=== PATIENT | female | born 1995 | race Caucasian/White ===

== ENCOUNTER 2023-05-30 02:00 | Emergency (ER) | payer BC, SELFPAY ==
[2023-05-30 02:05] VITALS: BP 109/75; PULSE 94; RESP 16; TEMP 36.4; O2SAT 97; BMI 40.4
--- NOTE | 2023-05-30 02:22 | ED.SKABFB ---
HPI - Skin/Abscess/Foreign Bdy General Date Seen: 05/30/23 Chief complaint: Unspecified Complaint, Adult Stated complaint: Chemical Burn- Time Seen by Provider: 05/30/23 02:05 Source: patient Mode of arrival: ambulatory Limitations: no limitations History of Present Illness HPI narrative: Patient is a 28 year female comfortable micro was presented emergency department for rash. She says around 19:30 she was having some issues with skin shave things so she put on a skin chafing cream and a fragrance for a. 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 They noticed blisters and she was concerned she had a chemical reaction causing allen she came to the emergency department to be evaluated. Denies symptoms like this before but does admit to having chafing issues in the past Related Data Previous Rx's Medication Instructions Recorded dimethicone 5 % topical cream 1 applic topical QID PRN skin 05/30/23 irritation #118 mL ketoconazole 2 % topical cream 1 applic topical DAILY #15 grams 05/30/23 Allergies Allergy/AdvReac Type Severity Reaction Status Date / Time No Known Drug Allergies Allergy Verified 05/30/23 02:05 Review of Systems Narrative: Negative unless stated in HPI PFSH PFSH Social History Smoking Status: Never smoker Do you use any of these nicotine containing products: None Non-prescribed substance use: denies use Exam Narrative: Exam Narrative: Const: Well-nourished, Well-developed, in mild distress Eyes: PERRL, no conjunctival injection, and symmetrical lids HENT: Atraumatic external nose and ears. Moist mucous membranes. MSK:Extremities w/o deformity, Normal Active ROM Skin: Erythematous area in the groin with small pustules. Neuro: Normal Muscle tone, No focal neurological deficits. Psych: Awake, Alert, & Oriented x3. Appropriate mood and affect. Const: Vital Signs, click to edit/add: Vital Signs - 24 hr 05/30/23 02:05 Temperature 97.5 F L Pulse Rate [Pulse Oximeter] 94 Respiratory Rate 16 Blood Pressure [Ri ght Upper Arm] 109/75 Pulse Oximetry 97 Oxygen Delivery Me thod Room Air Course Vital Signs Vital signs: Initial Vital Signs Temperature 97.5 F L 05/30/23 02:05 Temperature Source Temporal Artery Scan 05/30/23 02:05 Pulse Rate 94 05/30/23 02:05 Respiratory Rate 16 05/30/23 02:05 Blood Pressure 109/75 05/30/23 02:05 Blood Pressure Mean 86 05/30/23 02:05 Pulse Oximetry 97 05/30/23 02:05 Oxygen Delivery Method Room Air 05/30/23 02:05 Vital Signs Temperature 97.5 F L 05/30/23 02:05 Pulse Rate 94 05/30/23 02:05 Respiratory Rate 16 05/30/23 02:05 Blood Pressure 109/75 05/30/23 02:05 Pulse Oximetry 97 05/30/23 02:05 Oxygen Delivery Method Room Air 05/30/23 02:05 Temperature 97.5 F L 05/30/23 02:05 Pulse Rate 94 05/30/23 02:05 Respiratory Rate 16 05/30/23 02:05 Blood Pressure 109/75 05/30/23 02:05 Pulse Oximetry 97 05/30/23 02:05 Oxygen Delivery Method Room Air 05/30/23 02:05 MDM - Skin/Abscess/Foreign Bdy MDM Narrative Medical decision making narrative: Patient is a 28-year-old female presenting for rash in her groin. Exam appears to be chief in from her legs rubbing together. She currently is toe Shawn jelly on which she says helps with the symptoms when she is walking. Does not appear to be any open blisters. Appears more likely to be secondary to friction rash versus a chemical burn. We will discharge her home with antifungal cream just in case as this can commonly have fungal infection. Give instructions for using barrier creams. She is agreeable to this plan. Discharge Plan Discharge Clinical Impression: Intertrigo Patient Disposition: Home, Self-Care Condition: Stable Instructions: Dermatitis (ED) Additional Instructions: Your rashes from the or legs rubbing together. Zinc oxide, petrolatum, or dimethicone topicals can be applied after cleaning the intertriginous area with mild soap and water and drying with a political science chair on a cold setting. Also prescribe you prophylactic anti fungal cream Prescriptions: New ketoconazole 2 % cream 1 applic topical DAILY Qty: 15 0RF dimethicone 5 % cream 1 applic topical QID PRN (Reason: skin irritation) Qty: 118 0RF Stand Alone Forms: [employer] Info Instructions
== END 2023-05-30 02:59 | disposition home or self-care (01) ==
LOC: ED 02:41
PROVIDERS: Emergency Provider Student in an Organized Health Care Education/Training Program
DX: L30.4 Erythema intertrigo (principal)
CPT/HCPCS: 99282; 99283

== ENCOUNTER 2023-08-08 17:05 | Emergency (ER) | payer BC, SELFPAY ==
[2023-08-08] VITALS (8 sets, daily range): BP systolic 129; BP diastolic 85; PULSE 99–112; RESP 16; TEMP 36.2; O2SAT 95–100; BMI 40.4
--- NOTE | 2023-08-08 17:21 | CRLHL7_ITS ---
For Patients: As a result of the Century Cures Act, medical imaging exams and procedure reports are released immediately into your electronic medical record. You may view this report before your referring provider. If you have questions, please contact your health care provider. Indication: Chest pain Comparison: None available. Technique: Single AP view chest Findings: There is mild increased interstitial change. Calcified granulomas are seen in the right upper lobe. There is no focal consolidation, effusion, or pneumothorax. The cardiomediastinal silhouette is within normal limits. The bony thorax is grossly intact. Impression: Mildly increased interstitial markings without dense consolidation. Dictated by Thad Bro MD @ 08/08/2023 6:23:15 PM (Electronically Signed)
--- NOTE | 2023-08-08 17:22 | ED_ITS ---
HPI - General Adult General Chief complaint: Chest Pain Stated complaint: chest pain Time Seen by Provider: 08/08/23 17:06 History of Present Illness HPI narrative: 28-year-old white female nonsmoker who has elevated BMI presents with few 2nd left anterior parasternal chest discomfort this seemed to go away quite quickly than a felt a little odd in that area now has resolved. She has had no history of coronary disease no history of reflux, she has no recent illness, no cough cold or flu type illnesses although she was sick with influenza about a month ago. She seemed to recovered fully from that. No leg swelling or edema. Patient reports no chronic health problems other than bronchospasm. This occurs intermittently. She has not had any that issue now. No symptoms of COVID or other viral type illness. Patient does report she has a history of significant anxiety and is quite anxious right now. The patient reports to the nursing staff that she has had little pinprick type discomfort along her sternum last couple of days, but she really declined that to me. Related Data Previous Rx's Medication Instructions Recorded albuterol sulfate 90 mcg/actuation 2 puff inhalation Q4-6H PRN 07/06/23 aerosol inhaler shortness of breath or wheezing #1 packet ondansetron 4 mg disintegrating 4 mg PO Q6-8H PRN nausea and 07/06/23 tablet vomiting #10 tabs Allergies Allergy/AdvReac Type Severity Reaction Status Date / Time house dust mite Allergy Unknown Verified 08/08/23 17:09 Review of Systems Status of ROS: Reports: 6 or more systems reviewed and unremarkable except as noted in History and below Narrative: No bleeding or clotting history PFSH PFSH Medical History Acute asthma exacerbation ?J45.901 - Unspecified asthma with (acute) exacerbation (ICD-10) Social History Smoking Status: Never smoker Do you use any of these nicotine containing products: None Non-prescribed substance use: denies use Exam Narrative: Exam Narrative: Objective: Patient's vital signs show slightly elevated pulse of 112 O2 sat 100% on room air afebrile. Alert orient x3 noncyanotic, no difficulty breathing Patient reports she is asymptomatic HEENT is unremarkable neck supple nodes chest is clear no rales or wheezing heart rhythm regular heart murmur no anterior chest wall discomfort Abdomen benign Extremities are no edema neurologic nonfocal Const: Vital Signs, click to edit/add: Vital Signs - 24 hr 08/08/23 17:09 08/08/23 17:39 08/08/23 17:40 Temperature 97.1 F L Pulse Rate 109 H Pulse Rate [Pulse Oximeter] 112 H Respiratory Rate 16 Blood Pressure [Ri ght Upper Arm] 129/85 Pulse Oximetry 100 98 98 Oxygen Delivery Me thod Room Air 08/08/23 17:45 08/08/23 17:50 08/08/23 18:00 Temperature Pulse Rate 99 Pulse Rate [Pulse Oximeter] Respiratory Rate Blood Pressure [Ri ght Upper Arm] Pulse Oximetry 96 96 95 Oxygen Delivery Me thod 08/08/23 18:02 08/08/23 18:10 Temperature Pulse Rate Pulse Rate [Pulse Oximeter] Respiratory Rate Blood Pressure [Ri ght Upper Arm] Pulse Oximetry 96 96 Oxygen Delivery Me thod Course Vital Signs Vital signs: Initial Vital Signs Respiratory Effort Normal, Spontaneous, Non-Labored 08/08/23 17:08 Respiratory Depth Normal 08/08/23 17:08 Respiratory Pattern Normal 08/08/23 17:08 Vital Signs Temperature 97.1 F L 08/08/23 17:09 Pulse Rate 112 H 08/08/23 17:09 Respiratory Rate 16 08/08/23 17:09 Blood Pressure 129/85 08/08/23 17:09 Pulse Oximetry 100 08/08/23 17:09 Oxygen Delivery Method Room Air 08/08/23 17:09 Temperature 97.1 F L 08/08/23 17:09 Pulse Rate 99 08/08/23 17:45 Respiratory Rate 16 08/08/23 17:09 Blood Pressure 129/85 08/08/23 17:09 Pulse Oximetry 96 08/08/23 18:10 Oxygen Delivery Method Room Air 08/08/23 17:09 Medical Decision Making [facility] Narrative Medical decision making narrative: [age] year white female with transient discomfort left parasternal area that is was a few seconds in duration then resolved she has no further symptomology now. She does have history of anxiety. For completeness will check a troponin her EKG looks reassuring, I think it would be reasonable get an x-ray as well. She denies . Will check her lab studies. Disposition pending findings. Given the transient nature of this I do not think she needs a D-dimer other blood clot type test her O2 sats 100% she is afebrile and she has had no immobility and has had no leg swelling edema or clotting. Is and her symptoms have resolved in her chest after just seconds. Addendum 5:53 p.m.: The patient has a chest x-ray by my read looks unremarkable, her EKG shows sinus rhythm by my read she has been just slightly tachycardic. Her other laboratory studies thus far show negative troponin normal white count normal hemoglobin, ER profile is pending. I think we can all ow the patient to go home and I will call her back if there is any abnormalities in her ER profile I do not think that significant at this time she is in a sinus rhythm, within normal x-ray and some of this may be just simply inflammatory chest wall changes would recommend some Advil as needed and recheck with regular doctor next few days. Findings amp and lab studies today reassuring. Lab Data Labs: Lab Results 08/08/23 Range/Units 17:29 WBC 6.59 (4.50-11.00) K/uL RBC 4.30 (4.00-5.20) m/uL Hgb 12.1 (12.0-16.0) gm/dL Hct 38.4 (33.0-51.0) % MCV 89 (80-100) fL MCH 28 (26-34) pg MCHC 32 (32-36) gm/dL RDW Coeff of Luis Eduardo 14.7 (11.5-15.5) % Plt Count 418 (140-440) K/uL Neut % (Auto) 50.9 (42.0-72.0) % Lymph % (Auto) 39.2 (20-44) % Sevier % (Auto) 7.3 (0.0-11.0) % Eos % (Auto) 1.8 (0.0-7.0) % Baso % (Auto) 0.5 (0.0-3.0) % Neut # (Auto) 3.36 (1.7-7.0) K/uL Lymph # (Auto) 2.58 (0.90-2.90) K/uL Sevier # (Auto) 0.50 (0.00-0.90) K/UL Eos # (Auto) 0.12 (0.00-0.50) K/uL Baso # (Auto) 0.03 (0.00-0.30) K/uL Abs Immat Gran (auto) 0.02 (0.00-0.30) K/uL Imm/Tot Granulo (auto) 0.3 % Sodium 140 (135-149) mmol/L Potassium 4.2 (3.6-5.1) mmol/L Chloride 105 (96-114) mmol/L Carbon Dioxide 28 (20-32) mmol/L Anion Gap 7 (7-15) mEq/L BUN 7 (5-24) mg/dL Creatinine 0.6 (0.5-1.5) mg/dL Estimated Creat Clear 131.85 Estimated GFR 126 ml/min Glucose 116 H (60-115) mg/dL Calcium 9.1 (8.4-10.6) mg/dL C-Reactive Protein 1.1 H (0.5-1.0) mg/dL POC Troponin I 0.00 L (0.01-0.04) ng/ml Discharge Plan Discharge Clinical Impression: Acute chest wall pain Patient Disposition: Home w/ Parent or Adult Condition: Stable Instructions: Chest Pain (DC) Additional Instructions: Recommend light activity for a couple of days no heavy lifting, would recommend Advil 2 tablets with each meal 3 times a day for the next 4 5 days. Recheck with regular doctor if problems or concerns. Activity Level: Light activity Discharge Diet: Regular Prescriptions: No Action albuterol sulfate 90 mcg/actuation HFA aerosol inhaler 2 puff inhalation Q4-6H PRN (Reason: shortness of breath or wheezing) Qty: 1 0RF ondansetron 4 mg tablet,disintegrating 4 mg PO Q6-8H PRN (Reason: nausea and vomiting) Qty: 10 0RF Follow Up/Referrals: Provider,Not a Local [Primary Care Provider] - Stand Alone Forms: [employer] Info Instructions
[2023-08-08 17:43] LABS: Basophils Absolute Auto 0.03 K/uL (0.00-0.30); Basophils Percent Auto 0.5 % (0.0-3.0); Eosinophils Absolute Auto 0.12 K/uL (0.00-0.50); Eosinophils Percent Auto 1.8 % (0.0-7.0); Hematocrit 38.4 % (33.0-51.0); Hemoglobin* 12.1 gm/dL (12.0-16.0); Immature Granulocytes Abs Auto 0.02 K/uL (0.00-0.30); Immature Granulocytes Pct Auto 0.3 %; Lymphocytes Absolute Auto 2.58 K/uL (0.90-2.90); Lymphocytes Percent Auto 39.2 % (20-44); Mean Corpuscular HGB Conc 32 gm/dL (32-36); Mean Corpuscular Hemoglobin 28 pg (26-34); Mean Corpuscular Volume 89 fL (80-100); Monocytes Percent Auto 7.3 % (0.0-11.0); Neutrophils Absolute Auto 3.36 K/uL (1.7-7.0); Neutrophils Percent Auto 50.9 % (42.0-72.0); Platelet Count* 418 K/uL (140-440); RDW Coefficient of Variation % 14.7 % (11.5-15.5); White Blood Count* 6.59 K/uL (4.50-11.00)
[2023-08-08 17:51] LABS: Slide Review Reflex No
[2023-08-08 17:54] LABS: Chloride* 105 mmol/L (96-114); Potassium* 4.2 mmol/L (3.6-5.1); Sodium* 140 mmol/L (135-149)
[2023-08-08 17:57] LABS: Creatinine* 0.6 mg/dL (0.5-1.5); Est. Creatinine Clearance* 131.85; Estimated Glomerular Filt Rate 126 ml/min
[2023-08-08 17:58] LABS: Anion Gap 7 mEq/L (7-15); Blood Urea Nitrogen* 7 mg/dL (5-24); Calcium* 9.1 mg/dL (8.4-10.6); Carbon Dioxide* 28 mmol/L (20-32); Glucose* 116 mg/dL (60-115)
[2023-08-08 18:00] LABS: C Reactive Protein* 1.1 mg/dL (0.5-1.0)
== END 2023-08-08 18:27 | disposition home or self-care (01) ==
PROVIDERS: Emergency Provider Family Medicine
DX: R07.89 Other chest pain (principal)
CPT/HCPCS: 36415; 71045; 80048; 84484; 85025; 86140; 93005; 99284

== ENCOUNTER 2024-05-02 23:26 | Emergency (ER) | payer BC, SELFPAY ==
[2024-05-02 23:32] VITALS: BP 121/86; PULSE 68; RESP 20; TEMP 36.7; O2SAT 98; BMI 46.0
[2024-05-02] MEDS: GI COCKTAIL (VISC LIDO/ANTACID) 30 ML PO (23:54)
--- NOTE | 2024-05-02 23:54 | ED_ITS ---
HPI - General Adult General Chief complaint: Heartburn/Gastritis Stated complaint: severe acid reflux Time Seen by Provider: 05/02/24 23:44 History of Present Illness HPI narrative: This 29-year-old female comes in because of heartburn symptoms. She states that she does take omeprazole 20 mg daily. She also tried Pepto-Bismol. She states that she did eat some foods that were more offensive and that she does have a history of reflux symptoms on occasion. She arrives here with normal vital signs and otherwise has no other complaints. Related Data Home Medications ?Medication ?Instructions ?Recorded ?Confirmed aripiprazole 10 mg tablet 10 mg PO DAILY 10/29/23 05/02/24 bupropion HCl 150 mg 24 hr tablet, 150 mg PO DAILY 05/02/24 05/02/24 extended release cariprazine 3 mg capsule (Vraylar) 3 mg PO DAILY 05/02/24 05/02/24 doxepin 25 mg capsule 25 mg PO DAILY 05/02/24 05/02/24 hydroxyzine HCl 25 mg tablet 25 mg PO QID 05/02/24 05/02/24 lamotrigine 25 mg tablet 25 mg PO BID 05/02/24 05/02/24 lorazepam 0.5 mg tablet 0.5 mg PO Q6H PRN anxiety 05/02/24 05/02/24 prazosin 2 mg capsule 2 mg PO BID 05/02/24 05/02/24 Allergies Allergy/AdvReac Type Severity Reaction Status Date / Time house dust mite Allergy Unknown Verified 05/02/24 23:37 Review of Systems Status of ROS: Reports: 10 or more systems reviewed and unremarkable except as noted in History and below Narrative: Constitutional: No fevers, no weight gain or loss. Eyes: No discharge. No vision changes. HENT: No congestion, no sore throat, no ear pain. Cardiovascular: No chest pain, no palpitations. Respiratory: No shortness of breath, no wheezes, no cough. Gastrointestinal: No abdominal pain, no vomiting, no diarrhea. Genitourinary: No dysuria, no hematuria. Musculoskeletal: Normal range of motion. Skin: No rashes, no pruritis. Neurological: No dizziness, weakness, sensory change, speech change. Endo/Heme/Allergies: No bruising or bleeding. No polydipsia. Pysch: no suicidality, no anxiety, no insomnia. All other systems reviewed and are negative. [facility] Medical History Acute asthma exacerbation ?J45.901 - Unspecified asthma with (acute) exacerbation (ICD-10) Social History Smoking Status: Never smoker Do you use any of these nicotine containing products: None Non-prescribed substance use: denies use Exam Narrative: Exam Narrative: Constitutional: Well-developed, well-nourished, no acute distress. HEENT: Normocephalic, atraumatic. Neck: Normal range of motion. Nontender. Supple. Heart: Intact distal pulses. Lungs: No chest discomfort. No wheezes, rhonchi, or rales. Abdomen: Nontender. Back: Normal range of motion. Extremities: Normal range of motion. No injury. Skin: Intact. No rash. Warm. No erythema or pallor. Neurologic: No altered sensation. No weakness. Alert and oriented. Psychiatric: No suicidality. No anxiety or depression. No insomnia. Nursing notes and vitals signs are reviewed. Const: Vital Signs, click to edit/add: Vital Signs - 24 hr 05/02/24 23:32 Temperature 98.0 F Pulse Rate [Right Pulse Oximeter] 68 Respiratory Rate 20 Blood Pressure [Le ft Upper Arm] 121/86 Pulse Oximetry 98 Oxygen Delivery Me thod Room Air Course Vital Signs Vital signs: Initial Vital Signs Temperature 98.0 F 05/02/24 23:32 Temperature Source Temporal Artery Scan 05/02/24 23:32 Pulse Rate 68 05/02/24 23:32 Respiratory Rate 20 05/02/24 23:32 Blood Pressure 121/86 05/02/24 23:32 Blood Pressure Mean 97 05/02/24 23:32 Blood Pressure Position Sitting 05/02/24 23:32 Pulse Oximetry 98 05/02/24 23:32 Oxygen Delivery Method Room Air 05/02/24 23:32 Vital Signs Temperature 98.0 F 05/02/24 23:32 Pulse Rate 68 05/02/24 23:32 Respiratory Rate 20 05/02/24 23:32 Blood Pressure 121/86 05/02/24 23:32 Pulse Oximetry 98 05/02/24 23:32 Oxygen Delivery Method Room Air 05/02/24 23:32 Temperature 98.0 F 05/02/24 23:32 Pulse Rate 68 05/02/24 23:32 Respiratory Rate 20 05/02/24 23:32 Blood Pressure 121/86 05/02/24 23:32 Pulse Oximetry 98 05/02/24 23:32 Oxygen Delivery Method Room Air 05/02/24 23:32 Medical Decision Making MDM Narrative Medical decision making narrative: This patient comes in because of unsuccessful treatment of heartburn symptoms. She has had symptoms exactly like this in the past but was unable to remedy the symptoms with her treatments at home. She was given a GI cocktail here. I did advise her to increase her omeprazole dosing from 20 mg to 40 mg and even up to 80 mg daily if needed. I also described other treatments and dietary issues related to reflux. Discharge Plan Discharge Clinical Impression: Esophagitis, reflux Patient Disposition: Home, Self-Care Condition: Stable Additional Instructions: Okay to increase omeprazole to 40 mg daily or even up to 80 mg daily if needed. Follow up with MD or return if worsening. Prescriptions: No Action aripiprazole 10 mg tablet 10 mg PO DAILY doxepin 25 mg capsule 25 mg PO DAILY lamotrigine 25 mg tablet 25 mg PO BID lorazepam 0.5 mg tablet 0.5 mg PO Q6H PRN (Reason: anxiety) hydroxyzine HCl 25 mg tablet 25 mg PO QID prazosin 2 mg capsule 2 mg PO BID bupropion HCl 150 mg tablet extended release 24 hr 150 mg PO DAILY Vraylar 3 mg capsule 3 mg PO DAILY Follow Up/Referrals: Provider,Not a Local [Primary Care Provider] - Stand Alone Forms: [employer] Info Instructions
[2024-05-02 23:58] VITALS: BP 124/74; PULSE 70; RESP 20; TEMP 36.7; O2SAT 98
[2024-05-03 00:01] VITALS: BP 124/74; PULSE 70; RESP 20; TEMP 36.7
== END 2024-05-03 00:05 | disposition home or self-care (01) ==
PROVIDERS: Emergency Provider Emergency Medicine Emergency Medical Services
DX: K21.00 Gastro-esophageal reflux disease with esophagitis, without bleeding (principal)
CPT/HCPCS: 99283; 99284; A9270

== ENCOUNTER 2024-05-27 15:49 | Emergency (ER) | payer BC, SELFPAY ==
[2024-05-27 15:51] VITALS: BP 112/78; PULSE 102; RESP 20; TEMP 37.4; O2SAT 97; BMI 45.7
--- NOTE | 2024-05-27 16:07 | CRLHL7_ITS ---
For Patients: As a result of the Cures Act, medical imaging exams and procedure reports are released immediately into your electronic medical record. You may view this report before your referring provider. If you have questions, please contact your health care provider. Indication: Left sided chest pain Comparison: None available. Technique: PA and lateral views of the chest Findings: Hyperinflation and chronic interstitial changes with calcified granuloma in the right upper lobe. There is no focal consolidation, effusion, or pneumothorax. The cardiomediastinal silhouette is within normal limits. The bony thorax is grossly intact. Impression: No acute cardiopulmonary abnormality. Dictated by Thad Bro MD @ 05/27/2024 5:00:04 PM (Electronically Signed)
--- NOTE | 2024-05-27 16:08 | ED.CHESTPAIN ---
HPI - Chest Pain General Date Seen: 05/27/24 Chief Complaint: Chest Pain Stated Complaint: Chest pain Time Seen by Provider: 05/27/24 15:52 Source: patient Mode of arrival: ambulatory Limitations: no limitations History of Present Illness HPI narrative: Patient is a 29-year-old female presenting to the emergency department for chest pain. She states over the past week she have about 1 episode a day which she will get sharp left-sided chest pain that would last about 10 seconds to 1 minutes in length. Symptoms would then go away. She states when the symptoms were current she would have pain with any deep breaths. Denies having any pain like this prior to this past week. No chest injuries that she is aware appears currently pain-free. Symptoms appear to occur randomly. Last occurrence was about 30 minutes prior to arrival. She does have to grandparents who had heart attacks before their age 65. No family history of sudden cardiac at a young age. No history of cancer, recent surgeries. She is not currently on any hormonal treatments. Denies hemoptysis or lower extremity edema. No history of blood clots. Denies fevers, chills, lightheadedness, dizziness, weakness, numbness abdominal pain, diarrhea, constipation. Related Data Home Medications ?Medication ?Instructions ?Recorded ?Confirmed aripiprazole 10 mg tablet 10 mg PO DAILY 10/29/23 05/02/24 bupropion HCl 150 mg 24 hr tablet, 150 mg PO DAILY 05/02/24 05/02/24 extended release cariprazine 3 mg capsule (Vraylar) 3 mg PO DAILY 05/02/24 05/02/24 doxepin 25 mg capsule 25 mg PO DAILY 05/02/24 05/02/24 hydroxyzine HCl 25 mg tablet 25 mg PO QID 05/02/24 05/02/24 lamotrigine 25 mg tablet 25 mg PO BID 05/02/24 05/02/24 lorazepam 0.5 mg tablet 0.5 mg PO Q6H PRN anxiety 05/02/24 05/02/24 prazosin 2 mg capsule 2 mg PO BID 05/02/24 05/02/24 Allergies Allergy/AdvReac Type Severity Reaction Status Date / Time house dust mite Allergy Unknown Verified 05/27/24 18:14 Review of Systems Status of ROS Reports: 10 or more systems reviewed and unremarkable except as noted in History and below [facility] Medical History Acute asthma exacerbation ?J45.901 - Unspecified asthma with (acute) exacerbation (ICD-10) Social History Smoking Status: Never smoker Do you use any of these nicotine containing products: Vaping Products Second hand tobacco smoke exposure: No How often do you have a drink containing alcohol: never AUDIT-C Alcohol total score: 0 Non-prescribed substance use: denies use Exam Narrative Exam Narrative: Const: Well-nourished, Well-developed, in no distress Eyes: PERRL, no conjunctival injection, and symmetrical lids HENT: Atraumatic external nose and ears. Moist mucous membranes. Neck: Symmetric, trachea midline, No thyromegaly. CVS: RRR, No murmurs or gallops. Peripheral pulses 2+ and equal in all extremities RESP: Unlabored respiratory effort. Clear to auscultation bilaterally. GI: Nontender/Nondistended, No rebound or guarding. MSK:Extremities w/o deformity, Normal Active ROM Skin: Warm, Dry. No rashes or lesions. Neuro: Normal Muscle tone, No focal neurological deficits. Psych: Awake, Alert, & Oriented x3. Appropriate mood and affect. Const Vital Signs, click to edit/add: Vital Signs - 24 hr 05/27/24 15:51 05/27/24 17:25 05/27/24 19:14 Temperature 99.4 F 98 F 98.2 F Pulse Rate [Pulse Oximeter] 102 H 90 95 Respiratory Rate 20 18 18 Blood Pressure [Right Upper Arm] 112/78 110/72 113/73 Pulse Oximetry 97 98 96 Oxygen Delivery Method Room Air Room Air Room Air Course Vital Signs Vital signs: Initial Vital Signs Temperature 99.4 F 05/27/24 15:51 Temperature Source Temporal Artery Scan 05/27/24 15:51 Pulse Rate 102 H 05/27/24 15:51 Respiratory Rate 20 05/27/24 15:51 Blood Pressure 112/78 05/27/24 15:51 Blood Pressure Mean 89 05/27/24 15:51 Blood Pressure Position Sitting 05/27/24 15:51 Pulse Oximetry 97 05/27/24 15:51 Oxygen Delivery Method Room Air 05/27/24 15:51 Vital Signs Temperature 99.4 F 05/27/24 15:51 Pulse Rate 102 H 05/27/24 15:51 Respiratory Rate 20 05/27/24 15:51 Blood Pressure 112/78 05/27/24 15:51 Pulse Oximetry 97 05/27/24 15:51 Oxygen Delivery Method Room Air 05/27/24 15:51 Temperature 98.2 F 05/27/24 19:14 Pulse Rate 95 05/27/24 19:14 Respiratory Rate 18 05/27/24 19:14 Blood Pressure 113/73 05/27/24 19:14 Pulse Oximetry 96 05/27/24 19:14 Oxygen Delivery Method Room Air 05/27/24 19:14 MDM - Chest Pain MDM Narrative Medical decision making narrative: Patient is a 29-year-old female presenting for chest pain. The differential diagnosis of chest pain is broad and includes common etiologies such as precordial catch syndrome, musculoskeletal strain, GERD, pneumonia, etc. More serious etiologies considered include PE, coronary artery disease, pneumothorax, aortic dissection, aortic aneurysm. Patient has episodes of tachycardia so cannot be perked out. D-dimer will be ordered. Will do a EKG and troponin to look for signs of ACS. Will do chest x-ray to look for signs pneumothorax or pneumonia. There are dissection aortic aneurysm she very unlikely as the patient is otherwise stable and currently symptom free. Lab work returned showing no concerning skin findings other than a mildly elevated D-dimer and 0.51. EKG shows no concerning findings. Chest x-ray evaluated by myself the radiologist shows no concerning findings Will do a CTA of the chest to rule out PE. Will also do a repeat troponin. CTA shows no acute concerning abnormalities as evaluated by myself and the radiologist. Repeat troponin was performed and still within normal limits. She has not had any further symptoms since arriving in the emergency department. At this time I believe she is safe for discharge. She is agreeable to this plan Lab Data Labs: Lab Results 05/27/24 05/27/24 05/27/24 Range/Units 16:08 16:23 16:43 WBC 8.56 (4.50-11.00) K/uL RBC 4.46 (4.00-5.20) m/uL Hgb 11.3 L (12.0-16.0) gm/dL Hct 36.2 (33.0-51.0) % MCV 81 (80-100) fL MCH 25 L (26-34) pg MCHC 31 L (32-36) gm/dL RDW Coeff of Luis Eduardo 15.1 (11.5-15.5) % Plt Count 416 (140-440) K/uL Neut % (Auto) 53.0 (42.0-72.0) % Lymph % (Auto) 39.3 (20-44) % [place] % (Auto) 5.6 (0.0-11.0) % Eos % (Auto) 1.8 (0.0-7.0) % Baso % (Auto) 0.2 (0.0-3.0) % Neut # (Auto) 4.54 (1.7-7.0) K/uL Lymph # (Auto) 3.36 H (0.90-2.90) K/uL [place] # (Auto) 0.50 (0.00-0.90) K/UL Eos # (Auto) 0.15 (0.00-0.50) K/uL Baso # (Auto) 0.02 (0.00-0.30) K/uL Abs Immat Gran (auto) 0.01 (0.00-0.30) K/uL Imm/Tot Granulo (auto) 0.1 % D-Dimer Quant (PE/DVT) 0.51 H (0.00-0.50) ug/ml Sodium 138 (135-149) mmol/L Potassium 3.6 (3.6-5.1) mmol/L Chloride 103 (96-114) mmol/L Carbon Dioxide 24 (20-32) mmol/L Anion Gap 11 (7-15) mEq/L BUN 10 (5-24) mg/dL Creatinine 0.8 (0.5-1.5) mg/dL Estimated Creat Clear 98.01 Estimated GFR 103 ml/min Glucose 104 (60-115) mg/dL Calcium 8.9 (8.4-10.6) mg/dL Lab Acknowledgement Test Added POC Troponin I 0.00 L (0.01-0.04) ng/ml 05/27/24 Range/Units 18:47 WBC (4.50-11.00) K/uL RBC (4.00-5.20) m/uL Hgb (12.0-16.0) gm/dL Hct (33.0-51.0) % MCV (80-100) fL MCH (26-34) pg MCHC (32-36) gm/dL RDW Coeff of Luis Eduardo (11.5-15.5) % Plt Count (140-440) K/uL Neut % (Auto) (42.0-72.0) % Lymph % (Auto) (20-44) % [place] % (Auto) (0.0-11.0) % Eos % (Auto) (0.0-7.0) % Baso % (Auto) (0.0-3.0) % Neut # (Auto) (1.7-7.0) K/uL Lymph # (Auto) (0.90-2.90) K/uL [place] # (Auto) (0.00-0.90) K/UL Eos # (Auto) (0.00-0.50) K/uL Baso # (Auto) (0.00-0.30) K/uL Abs Immat Gran (auto) (0.00-0.30) K/uL Imm/Tot Granulo (auto) % D-Dimer Quant (PE/DVT) (0.00-0.50) ug/ml Sodium (135-149) mmol/L Potassium (3.6-5.1) mmol/L Chloride (96-114) mmol/L Carbon Dioxide (20-32) mmol/L Anion Gap (7-15) mEq/L BUN (5-24) mg/dL Creatinine (0.5-1.5) mg/dL Estimated Creat Clear Estimated GFR ml/min Glucose (60-115) mg/dL Calcium (8.4-10.6) mg/dL Lab Acknowledgement POC Troponin I 0.00 L (0.01-0.04) ng/ml Imaging Data Chest x-ray: Attestation: I have reviewed the pertinent imaging results. Radiologist's impression: No acute cardiopulmonary abnormality. Dictated by Thad Bro MD @ 05/27/2024 5:00:04 PM CTA chest: Attestation: I have reviewed the pertinent imaging results. Radiologist's impression: No pulmonary embolism. No focal consolidation. Please note that all CT scans at this facility use dose modulation, iterative reconstruction, and/or weight-based dosing when appropriate to reduce radiation dose to as low as reasonably achievable. Dictated by Tevin Guzman MD @ 05/27/2024 6:34:25 PM ECG Data Attestation: I personally reviewed and interpreted this ECG as follows: Prior ECG tracings: available for review Interpretation: Normal sinus rhythm the rate 97 beats per minute, normal intervals, normal axis, no ST or T-wave abnormalities. 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 Follow-up the primary care provider if symptoms persist. Return to emergency department for new or worsening symptoms. Prescriptions: No Action aripiprazole 10 mg tablet 10 mg PO DAILY doxepin 25 mg capsule 25 mg PO DAILY lamotrigine 25 mg tablet 25 mg PO BID lorazepam 0.5 mg tablet 0.5 mg PO Q6H PRN (Reason: anxiety) hydroxyzine HCl 25 mg tablet 25 mg PO QID prazosin 2 mg capsule 2 mg PO BID bupropion HCl 150 mg tablet extended release 24 hr 150 mg PO DAILY Vraylar 3 mg capsule 3 mg PO DAILY Follow Up/Referrals: Provider,Not a Local [Primary Care Provider] - Stand Alone Forms: [employer] Info Instructions
[2024-05-27 16:30] LABS: Basophils Absolute Auto 0.02 K/uL (0.00-0.30); Basophils Percent Auto 0.2 % (0.0-3.0); Eosinophils Absolute Auto 0.15 K/uL (0.00-0.50); Eosinophils Percent Auto 1.8 % (0.0-7.0); Hematocrit 36.2 % (33.0-51.0); Hemoglobin* 11.3 gm/dL (12.0-16.0); Immature Granulocytes Abs Auto 0.01 K/uL (0.00-0.30); Immature Granulocytes Pct Auto 0.1 %; Lymphocytes Absolute Auto 3.36 K/uL (0.90-2.90); Lymphocytes Percent Auto 39.3 % (20-44); Mean Corpuscular HGB Conc 31 gm/dL (32-36); Mean Corpuscular Hemoglobin 25 pg (26-34); Mean Corpuscular Volume 81 fL (80-100); Monocytes Percent Auto 5.6 % (0.0-11.0); Neutrophils Absolute Auto 4.54 K/uL (1.7-7.0); Platelet Count* 416 K/uL (140-440); RDW Coefficient of Variation % 15.1 % (11.5-15.5); Red Blood Count 4.46 m/uL (4.00-5.20); White Blood Count* 8.56 K/uL (4.50-11.00)
[2024-05-27 16:33] LABS: Slide Review Reflex No
[2024-05-27 16:57] LABS: Chloride* 103 mmol/L (96-114); Potassium* 3.6 mmol/L (3.6-5.1); Sodium* 138 mmol/L (135-149)
[2024-05-27 16:59] LABS: Creatinine* 0.8 mg/dL (0.5-1.5); Est. Creatinine Clearance* 98.01; Estimated Glomerular Filt Rate 103 ml/min
[2024-05-27 17:00] LABS: Anion Gap 11 mEq/L (7-15); Blood Urea Nitrogen* 10 mg/dL (5-24); Calcium* 8.9 mg/dL (8.4-10.6); Carbon Dioxide* 24 mmol/L (20-32); Glucose* 104 mg/dL (60-115)
[2024-05-27 17:04] LABS: D Dimer Quantitative* 0.51 ug/ml (0.00-0.50)
[2024-05-27 17:25] VITALS: BP 110/72; PULSE 90; RESP 18; TEMP 36.6; O2SAT 98
--- NOTE | 2024-05-27 18:03 | CRLHL7_ITS ---
For Patients: As a result of the Century Cures Act, medical imaging exams and procedure reports are released immediately into your electronic medical record. You may view this report before your referring provider. If you have questions, please contact your health care provider. INDICATION: Chest pain. TECHNIQUE: CT chest PE was acquired with 100 cc Omnipaque 350 IV contrast. COMPARISON: None. FINDINGS: Heart and vasculature: Contrast opacification of the pulmonary arterial tree is adequate. No sign of pulmonary embolism. Heart size is normal. Thoracic aorta and pulmonary artery are normal in caliber. Lungs and pleura: No suspicious nodules or infiltrates. Scattered granulomas. No pleural effusions, pleural thickening, or pneumothorax. Lymph nodes/mediastinum: No mediastinal, hilar, or axillary adenopathy. Chest wall: No masses. Upper abdomen: No acute or significant findings. Bones: Unremarkable for age. IMPRESSION: No pulmonary embolism. No focal consolidation. Please note that all CT scans at this facility use dose modulation, iterative reconstruction, and/or weight-based dosing when appropriate to reduce radiation dose to as low as reasonably achievable. Dictated by Tevin Guzman MD @ 05/27/2024 6:34:25 PM (Electronically Signed)
[2024-05-27 19:14] VITALS: BP 113/73; PULSE 95; RESP 18; TEMP 36.8; O2SAT 96
== END 2024-05-27 19:50 | disposition home or self-care (01) ==
PROVIDERS: Emergency Provider Student in an Organized Health Care Education/Training Program
DX: R07.9 Chest pain, unspecified (principal)
CPT/HCPCS: 36415; 71046; 71275; 80048; 84484; 85025; 85379; 93005; 99283; 99284; 99285; Q9967

== ENCOUNTER 2025-06-19 20:26 | Emergency (ER) | payer BC, SELFPAY ==
--- OUTSIDE RECORDS SUMMARY | 2025-06-19 20:28 | XMS_ITS | Clinical Summary ---
Author Organization [facility] Address [address] [place] [address] Care Team Providers Care Experimental [employer]ic [employer] Name Role Phone Codie Dumont [facility] Unavailable Liliana Magana MD Primary Care Provider Allergies No known active allergies Medications No known medications Active Problems Problem Noted Date Diagnosed Date Schizophrenia, schizo-affective 03/07/2024 Gastroesophageal reflux disease 03/07/2024 Posttraumatic stress disorder 10/15/2023 Mood disorder 10/15/2023 Severe recurrent major depre ssion without psychotic features 10/10/2021 Generalized anxiety disorder 03/31/2021 Seasonal allergies 03/15/2021 Dust allergy 03/15/2021 Allergy to cats 03/15/2021 Resolved Problems Problem Noted Date Diagnosed Date Resolved Date Moderate alcohol use disorde r, in sustained remission 10/15/2023 04/21/2025 Infertility, female, primary 02/20/2023 04/21/2025 Encounters Date Type Department Care Team Description 05/20/2025 Patient Outreach [facility] Management - Care Management Navigation/[facility] [address] [place] [id number] Dagmar Brown HRSN-Community Resource Navigation 05/06/2025 Nurse Triage [facility] [address] [place] [address] Liliana Magana MD Vaginal Bleeding 04/21/2025 11:20 AM CDT Office Visit [facility] [address] [place] [address] Liliana Magana MD Physical (No concerns today ) 04/21/2025 Travel from Last 3 Months Immunizations Immunization Administration Dates Next Due DTaP 04/05/2001,02/23/1997,1996 ,1996 Dtap Unspecified Formulation 05/19/1998 HPV 9 (Gardasil 9) 03/23/2021,,12/24/2019,05/28/2017, 01/06/2017 Hepatitis B, Unspecified 02/23/1997,1996,1 08/31/1995 Hib Conjugate, Unspecified 05/19/1998,02/23/1997 ,1996,1996 Inactivated Polio Vaccine 04/05/2001 Influenza, IIV3 (Age >=3 years) 06/10/2020,08/20 MMR 04/05/2001,06/11/1997 Polio Virus, Unspecified 02/23/1997,1996,1 08/31/1995 Tdap 10/22/2015,03/26/2009 Family History Medical History Relation Name Comments Anxiety disorder Brother Asthma Father Coronary artery disease Maternal Aunt Depression Maternal Aunt Thyroid cancer Maternal Aunt Heart attack Maternal Grandfather Skin cancer Maternal Grandfather Depression Maternal Grandmother Diabetes Maternal Grandmother Stroke Maternal Grandmother Alcoholism Mother Bipolar disorder Mother Diabetes Mother Suicidality Mother Dementia Paternal Grandfather Heart attack Paternal Grandfather Mental illness Sister Relation Name Status Comments Brother Alive Father Alive Maternal Aunt Alive Maternal Grandfather Alive Maternal Grandmother Alive Mother Paternal Grandfather Paternal Grandmother Alive Sister Alive Social History Tobacco Use Types Packs/Day Years Used Date Smoking Tobacco: Former Cigarettes 0.5 11.4 2 12/2024 Smokeless Tobacco: Never Tobacco Cessation:Counseling Given: Yes Alcohol Use Standard Drinks/Week Comments Not Currently 0 (1 standard drink = 0.6 oz pur e alcohol) PHQ-2 Answer Date Recorded PHQ-2 TOTAL SCORE 2 04/21/2025 Social Connections Answer Date Recorded Do you often feel lonely or isolated from those around you? 4 04/21/2025 Alcohol Use Answer Date Recorded How often do you have a drink containing alcohol ? 0 04/21/2025 Average Number of Drinks Not on file 025 Frequency of Binge Drinking Not on file 03/25 Financial Resource Strain Answer Date R ecorded Difficulty of Paying Living Expenses 2 04/21/2025 Difficulty of Paying Living Expenses 1 04/21/2025 Food Insecurity Answer Date Recorded Do you worry your food will run out before you are able to buy more? 2 04/21/2025 Transportation Needs Answer Date Record ed Does lack of transportation keep you from medica l appointments? 1 04/21/2025 Does lack of transportation keep you from work, meetings or getting things that you need? 1 04/21/2025 Housing Stability Answer Date Recorded What is your housing situation today? 1 04/21/2025 Interpersonal Safety Answer Date Record ed Are you being hit, kicked, p ushed or yelled at (see row info)? No 10/09/2023 Interpersonal Safety Abuse 12 - 18 Not on file 10/09/2023 Interpersonal Safety Ambulatory Vulnerability No t on file 10/09/2023 Utilities Answer Date Recorded Do you have trouble paying f or utilities (for example, heat, electricity, water, phone)? 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 Gender Identity Not on file Sexual Orientation Not on file Occupation Industry Job Start Date Job End Date Unemployed Not on file Not on file Not on file Obstetrics History Para Term AB IAB SAB Ectopic Multiple Livin g Live Births 0 0 0 0 0 0 0 0 0 0 0 Last Filed Vital Signs Vital Sign Reading Time Taken Comments Blood Pressure 110/74 04/21/2025 11:28 AM CDT Pulse 88 04/21/2025 11:28 AM CDT Temperature 36.6 C (97.8 F) 02/22/2024 8:37 AM CDT Respiratory Rate 16 02/22/2024 8:37 AM CDT Oxygen Saturation 97% 04/21/2025 11: 28 AM CDT Inhaled Oxygen Concentration - - Weight 134.4 kg (296 lb 3.2 oz) 025 11:28 AM CDT Height 169 cm (5' 6.54) 04/21/2025 11: 28 AM CDT Body Mass Index 47.04 04/21/2025 11:28 AM CDT Plan of Treatment Health Maintenance Due Date Last Done Comments Pneumococcal series for age 6-49 (1 of 2 - PCV) 2015 Influenza Vaccine (#1) 2025 06/10/2020, 2018 Tetanus booster 10/21/2025 10/22/2015, 03/26/2009 BMI (ht and wt on same day) for age 18+ 04/21/2026 04/21/2025 Depression screening for age 12+ 04/21/2026 04/21/2025, 03/11/2024, 10/16/2023, Additional history exists Pap test for age 21-65 03/07/2027 (Verified in Care Everywhere or Patient Record), 03/23/2021 (Verified in Care Everywhere or Patient Record) RSV vaccine for adults or (1 - 1-dose 75+ series) 2071 Hepatitis B series for 19+ Completed 02/23, 1996, 1996 HPV series for age 9-45 Completed 03/23/20, 06/10/2020, 12/24/2019, Additional history exists HIV for age 15-65 Addressed 01/20/2025 (Ve rified in Care Everywhere or Patient Record) Overridden with the intention of not completing the topic Hepatitis C screening for age 18-79 Addressed 01/20/2025 (Verified in Care Everywhere or Patient Record) Overridden with the intention of not completing the topic Procedures Procedure Name Priority Date/Time Associated Diagnosis Comments HEMOGLOBIN Routine 04/21/2025 11:49 AM CDT Screening, iron deficiency anemia LIPID PANEL W REFLEX MEASURED LDL Routine 04/21/2025 11:49 AM CDT Screening, lipid HEMOGLOBIN A1C Routine 04/21/2025 11:49 AM CDT Screening for diabetes mellitus from Last 3 Months Results * (ABNORMAL) HEMOGLOBIN A1C (04/21/2025 11:49 AM CDT) HEMOGLOBIN A1C 5.8(H) <5.7 % 04/22/2025 4:56 AM CDT [facility] [place] Comment: For someone without known diabetes, a hemoglobin A1c value between 5.7% and 6.4% is consistent with prediabetes and should be confirmed with a follow-up test. For someone with known diabetes, a value <7% indicates that their diabetes is well controlled. A1c targets should be individualized based on duration of diabetes, age, comorbid conditions, and other considerations. This assay result is consistent with an increased risk of diabetes. Currently, no consensus exists regarding use of hemoglobin A1c for diagnosis of diabetes for children. Blood BLOOD SPECIMEN / Unknown [facility] / Unknown 04/21/2025 11:49 AM CDT 04/21/2025 11:49 AM CDT us Liliana Magana MD CHEMISTRY Final R esult [facility] [place] [address] [address], * (ABNORMAL) LIPID PANEL W REFLEX MEASURED LDL (04/21/2025 11:49 AM CDT) [facility] CHOLESTEROL, TOTAL 152 <200 mg/dL 04/22/2025 3:34 AM [facility] TRIGLYCERIDES 131 <150 mg/dL 04/22/2025 3:34 AM CDT [facility] HDL CHOLESTEROL 40(L) > OR = 50 mg/dL 04/22/2025 3:34 AM [facility] NON HDL CHOLESTEROL 112 <130 mg/dL (calc) 04/22/2025 3:34 AM [facility] Comment: For patients with diabetes plus 1 major ASCVD risk factor, treating to a non-HDL-C goal of <100 mg/dL (LDL-C of <70 mg/dL) is considered a therapeutic option. CHOL/HDLC RATIO 3.8 <5.0 (calc) 04/22/2025 3:34 AM [facility] LDL-CHOLESTEROL 89 mg/dL (calc) 04/22/2025 3:34 AM [facility] Comment: Reference range: <100 Desirable range <100 mg/dL for primary prevention; <70 mg/dL for patients with CHD or diabetic patients with > or = 2 CHD risk factors. LDL-C is now calculated using the Belinda calculation, which is a validated novel method providing better accuracy than the Friedewald equation in the estimation of LDL-C. Kunal SS et al. MALLORY. 2013;310(19): 5430-9355 (http://education.[employer]/faq/UDL411) Blood BLOOD SPECIMEN / Unknown [facility] / Unknown 04/21/2025 11:49 AM CDT 04/21/2025 11:49 AM CDT Liliana Magana MD CHEMISTRY Final R esult Performing Organization Address [facility] Co de Phone Number [facility] [place] [address] [address], [place] [phone] * HEMOGLOBIN (04/21/2025 11:49 AM CDT) HEMOGLOBIN 12.4 11.7 - 15.5 g/dL 04/22/2025 3:51 AM CDT [facility] MCV 89.1 80.0 - 100.0 fL 04/22/2025 3:51 AM CDT [facility] Blood BLOOD SPECIMEN / Unknown [facility] / Unknown 04/21/2025 11:49 AM CDT 04/21/2025 11:49 AM CDT Liliana Magana MD HEMATOLOGY Final R esult Performing Organization Address [facility] Co de Phone Number [facility] [place] [address] [address], [place] [phone] from Last 3 Months Insurance [facility] NON-[place]-ITS Care Teams Experimental [employer] Spacecraft Relationship Specialty [place] [id number] [place] [address] PCP - General Family Practice 04/22/25 Codie Dumont, ANIKA [address] [place] [address] Psychiatry Clinical Nurse Specialist 03/05/24
--- OUTSIDE RECORDS SUMMARY | 2025-06-19 20:28 | XMS_ITS | Clinical Summary ---
[facility] Address [address] [address] Care Team Providers Care Operations Scheduler Name Role Phone Viki Bhatt APRN, CNP Primary Care Provide r Source Comments You are receiving this document as you are listed as the primary care provider,follow-up provider, or the patient has been referred to you for consultation.This is in compliance with the Medicare andMedicaid EHR Incentive Program,which states Providers who transition their patient to another setting of careor provider of care or refers their patient to another provider of care shouldprovide summary care record for each transition of care or referral. [facility] No known active allergies Medications hydrOXYzine HCl (ATARAX) 25 MG tablet Take 1 Tablet (25 mg) by mouth every 6 hours as needed. 4 Active metFORMIN (GLUCOPHAGE) 1000 MG tabletIndication s:Insulin resistance,Irreg ular menstruation, unspecified Take 1 Tablet (1,000 mg) by mouth two times a day with meals. 180 Tablet 3 5 11/11/19 26 Active omeprazole (PRILOSEC) 20 MG capsuleIndicatio ns:Gastroesophag eal reflux disease, unspecified whether esophagitis present Take 2 Capsules (40 mg) by mouth daily. 90 Capsule 3 5 Active Multiple Vitamin (MULTI-VITAMIN) tablet take 1 tablet by mouth daily with any meal 5 Active melatonin 5 MG tablet Take 1 Tablet (5 mg) by mouth daily at bedtime. Active cholecalciferol (VITAMIND3) 50 MCG (2000 UT) tablet Take 1 Tablet (2,000 Units) by mouth daily. Active ALBUterol sulfate HFA 108 (90 Base) MCG/ACT inhaler Inhale 2 Puffs every 4 hours as needed. 5 Active Active Problems Problem Noted Date Diagnosed Date Irregular menstruation, unspecified 08/11/2024 Abnormal uterine and vaginal bleeding, unspecifi ed 08/11/2024 Schizophrenia, schizo-affective 03/07/2024 Gastroesophageal reflux disease 03/07/2024 Mood disorder 11/27/2023 Posttraumatic stress disorder 11/27/2023 Infertility, female, primary 02/20/2023 Severe recurrent major depre ssion without psychotic features 10/10/2021 Generalized anxiety disorder 03/31/2021 Dust allergy 03/15/2021 Seasonal allergies 03/15/2021 Allergy to cats 03/15/2021 Resolved Problems Problem Noted Date Diagnosed Date Resolved Date Adjustment disorder with mix ed anxiety and depressed mood 03/31/2021 10/10/2021 Chest pain 03/14/2021 03/15/2021 Anxiety 03/14/2021 03/31/2021 Immunizations Immunization Administration Dates Next Due 9vHPV (Gardasil 9) 03/23/2021, 0,12/24/2019,2016,01/06/2017 DTaP 04/05/2001, 7,1996,1995 HepB, Unspecified Formulation 02/23/1997, 997,1996 Hib, Unspecified Formulation 05/19/1998, 02/23/1997,1996,1995 IPV (Polio) 04/05/2001 Influenza IIV4 (Quadrivalent ) 0.5mL (83331) 06/10/2020,08/20/2018 MMR 04/05/2001,06/11/1997 Polio, Unspecified Formulation 02/23/1997,1996,1996 Tdap 10/22/2015,03/26/2009 Social History Tobacco Use Types Packs/Day Years Used Date Smoking Tobacco: Former Cigarettes 0 Q uit: 03/15/2021 Smokeless Tobacco: Never Tobacco Cessation:Counseling Given: Not Answered Comments:Used to occ smoke cigarettes Alcohol Use Standard Drinks/Week Comments Not Currently 0 (1 standard drink = 0.6 oz pur e alcohol) PHQ-2 Answer Date Recorded PHQ-2 Score 0 08/01/2024 Hunger Vital Sign Answer Date Recorded Within the past 12 months, y ou worried that your food would run out before you got the money to buy more. Sometimes true Within the past 12 months, t he food you bought just didn't last and you didn't have money to get more. Never true PRAPARE - Transportation Answer Date Re corded In the past 12 months, has l ack of transportation kept you from medical appointments or from getting medications? No 02/20 In the past 12 months, has l ack of transportation kept you from meetings, work, or from getting things needed for daily living? No 03/07/2024 Housing Stability Vital Sign Answer Eladio e Recorded In the last 12 months, was t here a time when you were not able to pay the mortgage or rent on time? No 03/07/2024 Number of Times Moved in the Last Year Not on fi le 03/07/2024 At any time in the past 12 m [facility], were you homeless or living in a senior living (including now)? No 03/07/2024 Comments No Sex and Gender Information Value Date Recorded Sex Assigned at Not on file Legal Sex Female 7:30 AM CDT Gender Identity Not on file Sexual Orientation Not on file Occupation Industry Job Start Date Job End Date Not on file Not on file Not on file Not on file Last Filed Vital Signs Vital Sign Reading Time Taken Comments Blood Pressure 109/58 02/03/2025 3:29 PM CDT Pulse 92 02/03/2025 3:29 PM CDT Temperature 36.8 C (98.2 F) 11/21/2024 8:17 AM CDT Respiratory Rate 16 11/21/2024 8:17 AM CDT Oxygen Saturation 98% 11/21/2024 8:17 AM CDT Inhaled Oxygen Concentration - - Weight 140.6 kg (310 lb) 02/03/2025 3:29 PM CDT Height 168.9 cm (5' 6.5) 03/07/2024 11:07 AM CD T Body Mass Index 49.29 03/07/2024 11:07 AM CDT Plan of Treatment Health Maintenance Due Date Last Done Comments Hep C Screening (Preventive Services) 1996 COVID-19 Vaccine ( - season) 2025 Influenza Vaccine (#1) 2025 06/10/2020, 2018 DTaP/Tdap/Td Vaccine (7 - Tdap) 10/21/2025 10/22/2015, 03/26/2009, 04/05/2001, Additional history exists Adult Preventive Visit 03/07/2026 03/07/2024 Cervical Cancer Screening 03/07/20272023, 03/23/2021, 02/03/2020 (Completed) Zoster/Shingles Vaccine (1 of 2) 2046 HepB Vaccine Completed 02/23/1997, 09/21, 1996 Hib Vaccine Completed 05/19/1998, 10/1996, 1996, Additional history exists HPV Vaccine Completed 03/23/2021, 05/23, 12/24/2019, Additional history exists Chlamydia Discontinued 04/23/2024, 03/23/2021 HIV Screening (Preventive Services) Completed 04/23/2024, 03/23/2021 HepA Vaccine Aged Out No longer eligi ble based on patient's age to complete this topic MCV4 Vaccine Aged Out No longer eligi ble based on patient's age to complete this topic Meningococcal B Vaccine Aged Out No l onger eligible based on patient's age to complete this topic Pneumococcal Vaccine Aged Out No long er eligible based on patient's age to complete this topic Procedures Procedure Name Priority Date/Time Associated Diagnosis Comments HIV 1/2 AG/AB 4TH GEN Routine 04/23/2024 4:35 PM CDT Routine screening for STI (sexually transmitted infection) CHLAMYDIA & GC, URINE (14 YEARS AND OLDER) Routine 04/23/2024 4:35 PM CDT Routine screening for STI (sexually transmitted infection) CYTOLOGY (PAP) Routine 03/07/2024 12:05 PM CDT Screening for malignant neoplasm of cervix from Last 3 Months or Most Recently Relevant to Health Maintenance Results * HIV 1/2 Ag/Ab 4th Generation (04/23/2024 4:35 PM CDT) Pathologist [facility] HIV 1/2 Antigen/Antib nancy (4th generation) Negative (Non Reactive) Negative (Non Reactive) 04/23/2024 9:16 PM CDT [facility] Comment:HIV-1 p24 Antigen an d HIV-1/HIV-2 Antibody not detected Blood Venipuncture / Unknown 04/23/2024 4:35 PM CDT 04/23/2024 4:35 PM CDT Karla Mauricio PA-C LAB_1 Final Resul t Performing Organization Address [facility] Co de Phone Number [facility] [address] * Chlamydia & GC, Urine (14 Years and Older) (04/23/2024 4:35 PM CDT) [facility] Chlamydia Trachomatis STD Not Detected Not Detected 04/24/2024 2:12 PM CDT [facility] N. gonorrhoeae STD Not Detected Not Detected 04/24/2024 2:12 PM CDT [facility] Urine STD Non-blood Collection / Unknown 04/23/2024 4:35 PM CDT 04/23/2024 4:35 PM CDT Narrative [facility] - 04/24/2024 2:12 PM CDT Test performed by Barrel Charrer Helper Mediated Amplification (TMA). Karla Mauricio PA-C LAB_1 Final Resul t Performing Organization Address [facility]/ZIP Co de Phone Number [facility] [address] * PAP Test (03/07/2024 12:05 PM CDT) [facility] Case Report Pap Case: [id number] Authorizing Provider: Viki Bhatt APRN, Collected: 03/07/2024 1205 SKILLED HELPER Ordering Location: [facility] Received: 03/07/2024 1229 First Screen: NaultJosuéoe E, CT (ASCP) Specimen: Pap Test, Routine, Cervix/Endocervix 04/14/2024 3:38 PM CDT [facility] Pap Specimen Adequacy Satisfactory for evaluation, endocervical/zhang sformation zone component absent. 04/14/2024 3:38 PM CDT [facility] Pap Interpretation (NILM) Negative for intraepithelial lesion or malignancy. 04/14/2024 3:38 PM CDT [facility] at 1538 CDT Pap Disclaimer The Pap test is a screening test to aid in the detection of cervical and vaginal cancers and their precursor lesions. It is not a diagnostic procedure and should not be used as the sole means of detecting malignancy. Both false-positive and false-negative results may occur. 04/14/2024 3:38 PM CDT [facility] Gross Description The specimen is received in SurePath fixative and properly labeled. 1 Pap-stained SurePath slide is prepared. 04/14/2024 3:38 PM CDT [facility] Embedded Images 3:38 PM CDT [facility] Other Specimen Type ENTIRE ENDOCERVIX / Unknown 03/07/2024 12:05 PM CDT 03/07/2024 12:29 PM CDT Comment:LMP: No LMP recorded . Viki Bhatt APRN, CNP LAB PATHOLOGY Final Result [facility] [address] [place] [address], [facility] from Last 3 Months or Most Recently Relevant to Health Maintenance Insurance BCBS OUT OF STATE BCBS OUT OF STATE BCBS OUT OF [facility] [place] [phone] Care Teams Operations Scheduler Relationship Specialty Start Date End Date Viki Bhatt, PEDIGREE TRACER, SKILLED HELPER [address] [place] [address] PCP - General Nurse Practitioner 03/16/24
--- OUTSIDE RECORDS SUMMARY | 2025-06-19 20:28 | XMS_ITS | Clinical Summary ---
Author Organization [facility] Address [address] [place] [address] Care Team Providers Care Matte Cutter Name Role Phone No Ref-Primary, Physician Primary Care Provider Allergies No known active allergies Medications VRAYLAR 1.5 MG capsule TAKE 1 CAPSULE (1.5 MG) BY MOUTH ONCE DAILY. 02/01/2024 Active buPROPion (WELLBUTRIN XL) 150 MG 24 hr tablet Take 150 mg by mouth. 02/06/2024 Active famotidine (PEPCID) 20 MG tablet Take 20 mg by mouth. 06/16/2024 Active doxepin (SINEQUAN) 25 MG capsule Take 25 mg by mouth. 02/06/2024 Active hydrOXYzine HCl (ATARAX) 25 MG tablet Take 25-50 mg by mouth. 02/22/2024 Active lamoTRIgine (LAMICTAL) 25 MG tablet Take 25 mg by mouth. 02/29/2024 Active omeprazole (PRILOSEC) [address] capsule Take 2 capsules by mouth daily. 02/01/2024 Active nicotine (NICODERM CQ) 14 MG/24HR 24 hr patchIndication s:Nicotine dependence with current use Place 1 patch over 24 hours onto the skin every 24 hours. 28 patch 07/23/2024 Active Social History Tobacco Use Types Packs/Day Years Used Date Smoking Tobacco: Never Assessed Comments No Sex and Gender Information Value Date Recorded Sex Assigned at Not on file Legal Sex Female 1:31 PM PARALEGAL SECRETARY Gender Identity Not on file Sexual Orientation Not on file Last Filed Vital Signs Vital Sign Reading Time Taken Comments Blood Pressure 106/64 07/23/2024 2:34 PM PARALEGAL SECRETARY Pulse 101 07/23/2024 2:34 PM PARALEGAL SECRETARY Temperature 37.1 C (98.7 F) 07/23/2024 2:34 PM PARALEGAL SECRETARY Respiratory Rate 16 07/23/2024 2:34 PM PARALEGAL SECRETARY Oxygen Saturation 99% 07/23/2024 2:34 PM PARALEGAL SECRETARY Inhaled Oxygen Concentration - - Weight 127.9 kg (282 lb) 07/23/2024 2:34 PM PARALEGAL SECRETARY Height - - Body Mass Index - - Plan of Treatment Health Maintenance Due Date Last Done Comments ADVANCE CARE PLANNING 1996 ANNUAL REVIEW OF HM ORDERS 1996 HEPATITIS C SCREENING 2014 PHQ-2 (once per calendar year) 2024 YEARLY PREVENTIVE VISIT 03/07/2025 03/07/20, 09/08/2020, 06/10/2020 COVID-19 VACCINE ( season) 2025 INFLUENZA VACCINE (#1) 2025 06/10/2020, 2018 DTAP/TDAP/TD VACCINE (8 - Td or Tdap) 10/21/2025 10/22/2015, 03/26/2009, 04/05/2001, Additional history exists PAP 03/07/2027 03/07/2024, 09/08/2020 ZOSTER VACCINE (1 of 2) 2046 HEPATITIS B VACCINE Completed 02/23/1997, 1996, 1996 HPV VACCINE Completed 03/23/2021, 05/23, 12/24/2019, Additional history exists HIV SCREENING Completed 04/23/2024 MENINGITIS VACCINE Aged Out No longer eligible based on patient's age to complete this topic PNEUMOCOCCAL VACCINE: PEDIATRICS (0 to 5 YEARS) AND AT-RISK PATIENTS (6 to 49 YEARS) Aged Out No longer eligible based on patient's age to complete this topic Insurance BCBS OUT OF STATE BS OUT OF STATE Care Teams Matte Cutter Relationship Specialty Start Date End Date No Ref-Primary, Physician PCP - General 07/23/24
--- OUTSIDE RECORDS SUMMARY | 2025-06-19 20:28 | XMS_ITS | Clinical Summary ---
Author Organization [facility] Address [address] [place] [address] Care Team Providers Care Rectifying Attendant Name Role Phone Marlyn Perdomo M.D. Primary Care Provider [phone] Source Comments Patient records contain information from all sites at [facility]. For routine questions regarding patient records, call [phone] during business hours, M-F 8:00 AM - 5:00 PM Central Time. Record requests for emergency care only can be directed to [phone] at any time.[facility] Allergies No known active allergies Medications cetirizine (ZyrTEC) 10 mg tablet Take 10 mg by mouth daily. Active fluticasone propionate (FLONASE) 50 mcg/actuation nasal spray SHAKE LQ AND U 2 SPRAYS IEN D 0 Active sertraline (ZOLOFT) 25 mg tabletIndication s:Anxiety Take 1 tablet (25 mg total) by mouth daily. 30 tablet 1 Active Additional Information Patient not taking.Reported on 01/20/2025 ferrous sulfate tablet take 1 tablet by mouth daily 100 tablet 5 Active Additional Information Patient not taking.Reported on 01/20/2025 multivitamin tablet take 1 tablet by mouth daily with any meal 100 tablet 5 Active nicotine (Nicoderm CQ) 21 mg/[address] 1 patch on the skin daily, remove nightly. 42 patch 12/27/2024 7:34 PM CDT 5 Active Additional Information Patient not taking.Reported on 01/20/2025 cholecalciferol (Vitamin D3) 50 mcg (2,000 Unit) tablet take 1 tablet by mouth daily 100 tablet 5 Active Additional Information Patient not taking.Reported on 01/20/2025 FLUoxetine (PROzac) 40 mg capsule Take 1 capsule (40 mg total) by mouth daily for 7 days, THEN 2 capsules (80 mg total) daily thereafter. 60 capsule 12/27/2024 7:34 PM CDT 5 Active Additional Information Patient not taking.Reported on 01/20/2025 ibuprofen 600 mg tablet Take 1 tablet (600 mg total) by mouth every 6 (six) hours as needed for pain. Take with food or milk. 20 tablet 12/27/2024 7:34 PM CDT Active loperamide (Imodium A-D) 2 mg capsule Take 1 capsule (2 mg total) by mouth 4 (four) times a day as needed for diarrhea. 20 capsule 12/27/2024 7:34 PM CDT 5 Active Additional Information Patient not taking.Reported on 01/20/2025 folic acid 1 mg tablet Take 1 tablet (1,000 mcg total) by mouth daily for 30 days. 30 tablet 12/27/2024 7:34 PM CDT Active gabapentin (Neurontin) 300 mg capsule Take 1 capsule (300 mg total) by mouth 3 (three) times a day for 5 days. 15 capsule 12/27/2024 7:34 PM CDT 5 Active Additional Information Patient not taking.Reported on 01/20/2025 hydrOXYzine (Atarax) 25 mg tablet Take 1-2 tablets (25-50 mg total) by mouth every 6 (six) hours as needed for anxiety. 240 tablet 12/27/2024 7:34 PM CDT Active albuterol (ProAir HFA) 90 mcg/actuation inhalerIndicatio ns:Asthma Mild Intermittent (HCC) Inhale 2 puffs every 4 (four) hours as needed for wheezing or shortness of breath. 8.5 g 5 Active omeprazole (PriLOSEC) [address] capsule Take 1 capsule (40 mg total) by mouth daily as needed for acid reflux. 30 capsule 5 Active melatonin 5 mg tablet Take 1 tablet (5 mg total) by mouth at bedtime. 90 tablet 1 5 07/19/20 25 Active metFORMIN (Glucophage) 500 mg tablet Take 1 tablet (500 mg total) by mouth 2 (two) times a day. 60 tablet 5 Active Active Problems Problem Noted Date Diagnosed Date Major Depressive Disorder, Recurrent, Unspecifie d 01/20/2025 Rhinitis Allergic 06/10/2020 Anxiety 06/10/2020 Asthma Mild Intermittent 06/10/2020 Immunizations Immunization Administration Dates Next Due 9vHPV 03/23/2021, 0,12/24/2019,2016,01/06/2017 DTaP (Infanrix, [employer]) 04/05/2001,10/1996,1996,1995 DTaP, Unspecified 05/19/1998 HepB, Unspecified 02/23/1997,1996,06/30/19 96 Hib, Unspecified 05/19/1998, 7,1996,1995 IPV 04/05/2001 MMR 04/05/2001,06/11/1997 Polio, Unspecified 02/23/1997,1996, 996 Tdap 10/22/2015,03/26/2009 influenza vaccine quad (FLUZONE/FLUARIX) (6 months and older)(PF) 06/10/2020,08/20/2018 Family History Medical History Relation Name Comments No Known Problems Brother No Known Problems Father Coronary artery disease Maternal Grandfather Diabetes type II Maternal Grandfather Diabetes type II Maternal Grandmother Kidney failure Maternal Grandmother Completed suicide Mother Thyroid cancer Mother's Sister alok olea Coronary artery disease Paternal Grandfather raffy nogueira No Known Problems Paternal Grandmother No Known Problems Sister Relation Name Status Comments Brother Alive Father Alive Maternal Grandfather Alive Maternal Grandmother Alive Mother Mother's Sister alok olea Alive Paternal Grandfather raffy calloway Alive Paternal Grandmother Alive Sister Alive Social History Tobacco Use Types Packs/Day Years Used Date Smoking Tobacco: Never Smokeless Tobacco: Never Tobacco Cessation:Counseling Given: Yes Alcohol Use Standard Drinks/Week Comments Not Currently 0 (1 standard drink = 0.6 oz pur e alcohol) [facility] Utilities Answer Date Recorded In the past 12 months has th e [employer], oil, or water [employer] threatened to shut off services in your home? No 06/13/2024 Humiliation, Afraid, Rape, and Kick questionnair e Answer Date Recorded Within the last year, have y ou been afraid of your partner or ex-partner? No 06/10/2020 Within the last year, have y ou been humiliated or emotionally abused in other ways by your partner or ex-partner? No Within the last year, have y ou been kicked, hit, slapped, or otherwise physically hurt by your partner or ex-partner? No 06/10/2020 Within the last year, have y ou been raped or forced to have any kind of sexual activity by your partner or ex-partner? No 06/10/2020 Hunger Vital Sign Answer Date Recorded Within [...] medical appointments or from getting medications? No 05/24 In the past 12 months, has l ack of transportation kept you from meetings, work, or from getting things needed for daily living? No 06/13/2024 Depression Answer Date Recor ded PHQ-9 Total Score (max 27) 0 06/13 Housing Stability Answer Date Recorded What is your living situation today? [facility] have [facility] live 06/13/2024 Education Answer Date Recorded What is the highest level of school you have completed or the highest degree you have received? Some college, no degree 06/10/2020 Comments No Sex and Gender Information Value Date Recorded Sex Assigned at Female 06/13/2024 3:12 PM [employer] Legal Sex Female 10:16 AM CDT Gender Identity Female 06/13/2024 3:12 PM [employer] Sexual Orientation Straight 06/13/2024 3: 12 PM [employer] Last Filed Vital Signs Vital Sign Reading Time Taken Comments Blood Pressure 121/78 01/20/2025 12:54 PM CDT Pulse 94 01/20/2025 12:54 PM CDT Temperature 36 C (96.8 F) 01/20/2025 12:54 PM CDT Respiratory Rate 16 07/22/2020 9:59 AM [employer] Oxygen Saturation 96% 01/20/2025 12:54 PM CDT Inhaled Oxygen Concentration - - Weight 144 kg (317 lb 10.9 oz) 01/20/2025 12:54 PM CDT Height 170.3 cm (5' 7.05) 09/08/2020 3:57 PM CS T Body Mass Index 49.69 09/08/2020 3:57 PM [employer] Plan of Treatment Health Maintenance Due Date Last Done Comments Pneumococcal vaccine (0-49 y ears) (1 of 2 - PCV) 2015 Asthma Action Plan 06/10/2020 Depression Monitoring (PHQ-9) 10/11/2024 06/13/2024 COVID-19 Vaccine (1 - 2024-2 6 season) 2025 Influenza Vaccine (#1) 2025 06/10/2020, 2018 DTaP,Tdap,and Td Vaccines (8 - Td or Tdap) 10/21/2025 10/22/2015, 03/26/2009, 04/05/2001, Additional history exists Asthma Control Test Questionnaire 01/20/2026 025 Asthma Management/Exacerbati on Questionnaire (AMQ/AEQ) 01/20/2026 01/20/2025 Cervical/Vaginal Cancer Screening 03/07/2027 024, 09/08/2020 Hepatitis B Vaccines Completed 02/23/1997, 1996, 1996 IPV Vaccines Completed 04/05/2001, 10/1996, 1996, Additional history exists Chlamydia and Gonorrhea Screening Discontinued 020 HPV Vaccines Completed 03/23/2021, 05/23, 12/24/2019, Additional history exists Depression Monitoring (PHQ-9 for quality tracking) Completed 01/20/2025, 01/20/2025 HIV Screening Completed 01/20/2025 Procedures Procedure Name Priority Date/Time Associated Diagnosis Comments HIV-1/-2 AG AND AB SCREEN, PLASMA Routine 01/20/2025 1:54 PM CDT Screening Test Laboratory THINPREP SCREEN HPV REFLEX Routine 09/08/2020 4:27 PM [employer] Pap Smear Examination CHLAMYDIA/GONORRHOE AE AMPLIFIED RNA Routine 06/10/2020 4:20 PM [employer] Screening For Venereal Disease from Last 3 Months or Most Recently Relevant to Health Maintenance Results * HIV-1/-2 Ag and Ab Screen, Plasma (01/20/2025 1:54 PM CDT) Pathologist [facility] HIV Ag/Ab Screen, P Negative Negative 01/20/2025 4:12 PM CDT LCX Comment: Negative result does not rule out HIV infection. If exposure to HIV infection occurred <14 days ago, contact the laboratory to request addition of HIV-1/HIV-2 RNA detection, Plasma (HIP12). HIV-1 p24 Ag Screen, P Negative Negative 01/20/2025 4:12 PM CDT LCX Comment: Negative result does not rule out HIV infection. If exposure to HIV infection occurred <14 days ago, contact the laboratory to request addition of HIV-1/HIV-2 RNA detection, Plasma (HIP12). HIV-1 Ab Screen, P Negative Negative 01/20/2025 4:12 PM CDT LCX Comment: Negative result does not rule out HIV infection. If exposure to HIV infection occurred <14 days ago, contact the laboratory to request addition of HIV-1/HIV-2 RNA detection, Plasma (HIP12). HIV-2 Ab Screen, P Negative Negative 01/20/2025 4:12 PM CDT LCX Comment: Negative result does not rule out HIV infection. If exposure to HIV infection occurred <14 days ago, contact the laboratory to request addition of HIV-1/HIV-2 RNA detection, Plasma (HIP12). Blood (Blood, Venous) 01/20/2025 1:54 PM CDT 01/20/2025 1:59 PM CDT us Tee Siddiqi D.O. LAB MICROBIOLOGY - BLOOD O RDERABLES Final Result [facility] [place] [address] [place] [address], [place] LCX [facility] [place] [address] [place] [address] * ThinPrep Screen HPV Reflex (09/08/2020 4:27 PM [employer]) 09/13/2020 11:54 AM [employer] ECLR Report electronically signed by JUDI Rodriguez(ASCP) I verify that I have examined all relevant slides/materials for the specimen(s) and rendered or confirmed the diagnosis. 09/13/2020 11:54 AM [employer] ECLR Gross Description Received specimen in a ThinPrep vial. 09/13/2020 11:54 AM [employer] ECLR Pap Test Source Cervical/Endocervi miguel 09/13/2020 11:54 AM [employer] ECLR Interpretation Cervical/Endocervi miguel (ThinPrep): Satisfactory for Evaluation Negative for Intraepithelial Lesion or Malignancy Shift in rahat suggestive of bacterial vaginosis 09/13/2020 11:54 AM [employer] ECLR Varies (Cervix/Endocerv ix) 09/08/2020 4:27 PM [employer] 09/09/2020 8:33 AM [employer] us Catrina Ring M.D. LAB PAP PATHDX ORDERABLES Fin al Result [facility] [address] [place] [id number], [facility] ECLR [facility] in [address] [address] * Chlamydia / Gonorrhoeae Amplified RNA (06/10/2020 4:20 PM [employer]) Source Swab, Cervix/Endo cervix 06/11/2020 12:26 PM [employer] ECLR Chlamydia trachomatis amplified RNA Negative Negative 06/11/2020 12:26 PM [employer] ECLR Comment: The test performance characteristics of cervix and endocervix samples using the Oviceversagic Multitest swab for GC/Chlamydia testing have NOT been determined by the [facility] laboratory. Per CDC guidelines published in 2014, the preferred specimen for GC/Chlamydia testing on females is the vaginal swab. The Oviceversagic Multitest swab is used for vaginal samples. Source Swab, Cervix/Endo cervix 06/11/2020 12:26 PM [employer] ECLR Neisseria gonorrhoeae amplified RNA Negative Negative 06/11/2020 12:26 PM [employer] ECLR Comment: The test performance characteristics of cervix and endocervix samples using the Hologic Multitest swab for GC/Chlamydia testing have NOT been determined by the [facility] laboratory. Per CDC guidelines published in 2014, the preferred specimen for GC/Chlamydia testing on females is the vaginal swab. The Oviceversagic Multitest swab is used for vaginal samples. Varies (Cervix/Endocerv ix) 06/10/2020 4:20 PM [employer] 06/10/2020 7:17 PM [employer] Edwige Roberts M.D. LAB MICROBIOLOGY - GENERAL BELEN IYER Final Result [facility] [address] [place] [id number], [facility] ECLR [place] [address] from Last 3 Months or Most Recently Relevant to Health Maintenance Insurance [facility] Care Teams Rectifying Attendant Relationship Specialty Start Date End Date Marlyn Perdomo M.D. [address] [place] [phone] PCP - General Family Medicine 01/29/25
--- NOTE | 2025-06-19 20:36 | CRLHL7_ITS ---
For Patients: As a result of the Century Cures Act, medical imaging exams and procedure reports are released immediately into your electronic medical record. You may view this report before your referring provider. If you have questions, please contact your health care provider. Indication: Fall, ankle swelling and pain Technique: Left ankle, 3 views. Comparison: None. Findings/Impression: There is an acute, mildly displaced, horizontally oriented fracture of the lateral malleolus distal to the tibiofibular syndesmosis. There is overlying soft tissue swelling. Dictated by Aneta Feldman MD @ 06/19/2025 8:58:08 PM (Electronically Signed)
[2025-06-19 20:37] VITALS: BP 109/80; PULSE 94; RESP 16; TEMP 37.2; O2SAT 96
--- NOTE | 2025-06-19 20:49 | ED.GENADULT ---
HPI - General Adult General Chief complaint: Extremity Pain/Injury, Lower Stated complaint: L ankle injury Time Seen by Provider: 06/19/25 20:45 Source: patient Mode of arrival: ambulatory Limitations: no limitations History of Present Illness HPI narrative: 30-year-old female coming in today complaining of left ankle pain. Patient was walking in the snow when she lost her footing and felt a crack of the left ankle. She is able to bear weight but causes significant discomfort laterally. Related Data Home Medications ?Medication ?Instructions ?Recorded ?Confirmed hydroxyzine HCl 25 mg tablet 25 mg PO QID 05/02/24 06/19/25 Allergies Allergy/AdvReac Type Severity Reaction Status Date / Time house dust mite Allergy Unknown Verified 07/30/24 14:28 Review of Systems Status of ROS: Reports: 6 or more systems reviewed and unremarkable except as noted in History and below [facility] Medical History Acute asthma exacerbation ?J45.901 - Unspecified asthma with (acute) exacerbation (ICD-10) Social History Smoking Status: Never smoker Do you use any of these nicotine containing products: Vaping Products Second hand tobacco smoke exposure: No How often do you have a drink containing alcohol: never AUDIT-C Alcohol total score: 0 Non-prescribed substance use: denies use Exam Narrative: Exam Narrative: Obese, well-developed patient in no acute distress. Alert and oriented. Answers questions appropriately. Mood and affect are appropriate. Thoughts are goal oriented and rational. No tangential or magical thinking noted. Patient speaks in full sentences without needing to catch her breath. HEENT: Normocephalic atraumatic. Pupils are equally round reactive to light. Extraocular muscles are intact. Conjunctivae are moist without any icterus noted. Moist mucous membranes. Extremities: Patient has significant lateral swelling of the left ankle with discomfort over the lateral malleolus. Normal DP PT pulses. Const: Vital Signs, click to edit/add: Vital Signs - 24 hr 06/19/25 20:37 Temperature 99.0 F Pulse Rate [Right Pulse Oximeter] 94 Respiratory Rate 16 Blood Pressure [Le ft Upper Arm] 109/80 Pulse Oximetry 96 Oxygen Delivery Me thod Room Air Course Course ED Course: X-ray, read by me, shows a fracture of the lateral malleolus, distal to the joint line. Patient placed in a cam boot. Vital Signs Vital signs: Initial Vital Signs Temperature 99.0 F 06/19/25 20:37 Temperature Source Temporal Artery Scan 06/19/25 20:37 Pulse Rate 94 06/19/25 20:37 Respiratory Rate 16 06/19/25 20:37 Blood Pressure 109/80 06/19/25 20:37 Blood Pressure Mean 89 06/19/25 20:37 Blood Pressure Position Sitting 06/19/25 20:37 Pulse Oximetry 96 06/19/25 20:37 Oxygen Delivery Method Room Air 06/19/25 20:37 Vital Signs Temperature 99.0 F 06/19/25 20:37 Pulse Rate 94 06/19/25 20:37 Respiratory Rate 16 06/19/25 20:37 Blood Pressure 109/80 06/19/25 20:37 Pulse Oximetry 96 06/19/25 20:37 Oxygen Delivery Method Room Air 06/19/25 20:37 Temperature 99.0 F 06/19/25 20:37 Pulse Rate 94 06/19/25 20:37 Respiratory Rate 16 06/19/25 20:37 Blood Pressure 109/80 06/19/25 20:37 Pulse Oximetry 96 06/19/25 20:37 Oxygen Delivery Method Room Air 06/19/25 20:37 Medical Decision Making MDM Narrative Medical decision making narrative: 30-year-old female, fracture of the lateral malleolus. Patient will follow-up with orthopedics next week. Imaging Data X-ray ankle: Attestation: I have reviewed the pertinent imaging results. Radiologist's impression: Technique: Left ankle, 3 views. Comparison: None. Findings/Impression: There is an acute, mildly displaced, horizontally oriented fracture of the lateral malleolus distal to the tibiofibular syndesmosis. There is overlying soft tissue swelling. Discharge Plan Discharge Clinical Impression: Fracture of lateral malleolus Patient Disposition: Home, Self-Care Condition: Stable Additional Instructions: Wear boot at all times. Follow-up with orthopedics next week. Elevate as much as possible over the next 24 hours. Ice it today and tomorrow-ice for 20 minutes at a time every 2-3 hours, do not apply ice directly to the skin. Prescriptions: No Action hydroxyzine HCl 25 mg tablet 25 mg PO QID Follow Up/Referrals: Provider,Not a Local [Primary Care Provider, Family Practice] Stand Alone Forms: [employer] Info Instructions
== END 2025-06-19 22:00 | disposition home or self-care (01) ==
LOC: ED 21:17
PROVIDERS: Emergency Provider Family Medicine
DX: S82.62XA Displaced fracture of lateral malleolus of left fibula, initial encounter for closed fracture (principal); W00.2XXA Other fall from one level to another due to ice and snow, initial encounter
CPT/HCPCS: 29505; 73610; 99283; 99284